=== PATIENT | male | born 1945 | race Caucasian/White ===

== ENCOUNTER → 2017-06-02 | Day surgery (SDC) | payer OTHER ==
[~2017-06-02] MED LIST: AMLO5TAB2 PO; DIAZ5TAB PO; HYDR-4068 PO; LEVO100T12 PO; RISP1TAB89 PO
[2017-06-02 14:27] LABS: INR 1.18 (0.85-1.15); PROTHROMBIN TIME 12.3 SEC (9.6-11.6)
== END ==
LOC: SDC 13:16
PROVIDERS: ATTEND Family Medicine
DX: Z45.2 Encounter for adjustment and management of vascular access device (principal); A69.20 Lyme disease, unspecified; I10 Essential (primary) hypertension; B19.20 Unspecified viral hepatitis C without hepatic coma; F43.12 Post-traumatic stress disorder, chronic; E03.9 Hypothyroidism, unspecified; I25.10 Atherosclerotic heart disease of native coronary artery without angina pectoris; K73.9 Chronic hepatitis, unspecified; H40.053 Ocular hypertension, bilateral; D33.9 Benign neoplasm of central nervous system, unspecified; F34.1 Dysthymic disorder
CPT/HCPCS: 36415; 36569; 71045; 76937; 85610; A4606; C1894